=== PATIENT | female | born 2005 | race Caucasian/White ===

== ENCOUNTER 2023-02-09 05:32 | Day surgery (SDC) | payer OTHER ==
[2023-02-05 15:53] VITALS: BMI 28.3
[2023-02-09 08:53] VITALS: TEMP 97.8
[2023-02-09 09:23] VITALS: BP 105/69; PULSE 64; RESP 18
== END 2023-02-09 09:22 | disposition home or self-care (01) ==
LOC: JASU-ENDO 05:32
PROVIDERS: ATTEND Student in an Organized Health Care Education/Training Program
PROC: 0DB78ZX Excision of Stomach, Pylorus, Via Natural or Artificial Opening Endoscopic, Diagnostic (ICD-10-PCS; 2023-02-09)
PROC: 0DB68ZX Excision of Stomach, Via Natural or Artificial Opening Endoscopic, Diagnostic (ICD-10-PCS; 2023-02-09)
PROC: 0DB48ZX Excision of Esophagogastric Junction, Via Natural or Artificial Opening Endoscopic, Diagnostic (ICD-10-PCS; 2023-02-09)
PROC: 0DB98ZX Excision of Duodenum, Via Natural or Artificial Opening Endoscopic, Diagnostic (ICD-10-PCS; principal; 2023-02-09 08:30)
DX: K29.50 Unspecified chronic gastritis without bleeding (principal); K21.00 Gastro-esophageal reflux disease with esophagitis, without bleeding
CPT/HCPCS: 81025; 88305-TC; 88342-TC